=== PATIENT | female | born 1995 | race Caucasian/White ===

== ENCOUNTER 2019-11-25 16:27 | Emergency (ER) | payer BC ==
[2019-11-25] MEDS ORDERED: MAGNE/ALUM HYDROXD 30 ML UCUP ONE (17:59)
[2019-11-25] MEDS ORDERED: LIDOCAINE VISCOUS 2% SOLN 15 ML UDC ONE (18:00)
[2019-11-25] MEDS ORDERED: FAMOTIDINE 20 MG TAB ONE (18:00)
[2019-11-25 18:35] LABS: Absolute Lymphocytes (CBC) 1.6 K/uL (0.7-4.9); Basophils % 0.7 % (0-1.3); Hematocrit 43.7 % (36.0-45.0); Lymphocytes % 18.4 % (15.3-44.8); MPV 9.3 fL (7.6-11.3); RBC Red Blood Cell Count 4.53 M/uL (3.86-4.86)
[2019-11-25 19:50] LABS: ALT/SGPT 14 U/L (12-78); AST/SGOT 11 U/L (15-37); Alkaline Phosphatase 76 U/L (45-117); BUN Blood Urea Nitrogen 10 mg/dL (7-18); Bicarbonate 26 mmol/L (21-32); Bilirubin Direct 0.1 mg/dL (0-0.2); Bilirubin Total 0.4 mg/dL (0.2-1.0); Glucose Level 91 mg/dL (74-106); Lipase 125 U/L (73-393); Potassium 3.7 mmol/L (3.5-5.1); Protein, Total 7.6 g/dL (6.4-8.2); Sodium Level 140 mmol/L (136-145)
[2019-11-25 20:03] LABS: Urine Blood 2+ (NEG); Urine Glucose NEGATIVE (NEG); Urine Protein NEGATIVE (NEG); Urine Specific Gravity 1.025 (1.005-1.030)
--- NOTE | 2019-11-25 20:50 | ER ---
Nurse's Notes [facility] Name: Danielito Sadler Age: 24 yrs Sex: Female : 1995 Arrival Date: 11/25/2019 Time: 16:29 Bed 18 Private MD: Diagnosis: Gastritis and duodenitis Presentation: 11/25 16:48 Presenting complaint: Patient states: Abdominal pain x 3 days, epigastric area. Today, ca1 cramping on the lower belly. reports nausea, denies vomiting and diarrhea. Burning when urinating on Monday but went away. Denies fever. Transition of care: patient was not received from another setting of care. Onset of symptoms was November 25, 2019. Risk Assessment: Do you want to hurt yourself or someone else? Patient reports no desire to harm self or others. Initial Sepsis Screen: Does the patient meet any 2 criteria? No. Patient's initial sepsis screen is negative. Does the patient have a suspected source of infection? No. Patient's initial sepsis screen is negative. Care prior to arrival: None. 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 - Coronavirus screen:: The patient has NOT traveled to [place], [place], or [place] in the past 14 days. The patient has NOT had contact with known/suspected case of Coronavirus?. - Social history:: Patient/guardian denies using alcohol, street drugs, The patient lives with spouse, Smoking status: Patient denies any tobacco usage or history of. - Family history:: not pertinent. - Ebola Screening: : Patient negative for fever greater than or equal to 101.5 degrees Fahrenheit, and additional compatible Ebola Virus Disease symptoms Patient denies exposure to infectious person Patient denies travel to an Ebola-affected area in the 21 days before illness onset No symptoms or risks identified at this time. Screenin:47 Abuse screen: Denies threats or abuse. Nutritional screening: No deficits noted. Tuberculosis screening: No symptoms or risk factors identified. Fall Risk None identified. Assessment: 17:38 General: Appears in no apparent distress. Behavior is calm, cooperative, appropriate ah for age. Pain: Complains of pain in epigastric area and right upper quadrant Pain does not radiate. Pain currently is 5 out of 10 on a pain scale. Quality of pain is described as crampy, Pain began 2-3 days ago. Alleviated by repositioning, Aggravated by eating. Neuro: Level of Consciousness is awake, alert, Oriented to person, place, time, situation, Gait is steady, Speech is normal. Cardiovascular: Heart tones S1 S2 present. Respiratory: Airway is patent Respiratory effort is even, unlabored, Respiratory pattern is regular, symmetrical, Breath sounds are clear bilaterally. GI: Abdomen is distended, Bowel sounds present X 4 quads. Abd is soft and non tender X 4 quads. Reports nausea, Pt states that she has taken a stool softener and had a BM with no relief of symptoms. : Reports burning with urination, on Monday only, it has subsided. EENT: No signs and/or symptoms were reported regarding the EENT system. Derm: No signs and/or symptoms reported regarding the dermatologic system. 18:26 Reassessment: the IV blew when flushed but I was able to draw ordered blood prior to ah blowing. Pt tolerated well. 18:26 Reassessment: Informed Dr Olivares of IV blowing and he stated that we did not need to ah do a repeat IV at this time. 19:25 General: Appears in no apparent distress. Behavior is calm, cooperative, appropriate ea for age. Pain: Complains of pain in epigastric area. Neuro: Level of Consciousness is awake, alert, Oriented to person, place, time, situation. Cardiovascular: Patient's skin is warm and dry. Respiratory: Airway is patent Respiratory effort is even, unlabored, Respiratory pattern is regular, symmetrical. Derm: Skin is pink, warm \T\ dry. Musculoskeletal: Circulation, motion, and sensation intact. 20:21 Reassessment: Patient and/or family updated on plan of care and expected duration. Pain ea level reassessed. Patient is alert, oriented x 3, equal unlabored respirations, skin warm/dry/pink. Discharge instruction given to patient, verbalized the understanding of instruction. Pt left ED ambulatory accompanied by family. tolerating well. Vital Signs: 16:51 BP 115 / 83; Pulse 67; Resp 19 S; Temp 97.9(O); Pulse Ox 100% on R/A; Weight 70.31 kg ca1 (R); Height 5 ft. 3 in. (160.02 cm) (R); Pain 5/10; 19:29 BP 118 / 54; Pulse 78; Resp 18; Pulse Ox 100% on R/A; ea 20:00 BP 112 / 65; Pulse 78; Resp 18; Temp 98; Pulse Ox 99% on R/A; ea 16:51 Body Mass Index 27.46 (70.31 kg, 160.02 cm) ca1 ED Course: 16:29 Patient arrived in ED. mr 16:50 Triage completed. ca1 16:51 Arm band placed on right wrist. ca1 17:30 Judie Olivares MD is Attending Physician. ma2 17:31 Priya Rodrigues, RN is Primary Nurse. ah 18:26 Missed attempt(s): 22 gauge in right antecubital area. Bleeding controlled, band aid ah applied, catheter tip intact. 18:27 Patient has correct armband on for positive identification. Placed in gown. Bed in low ah position. Call light in reach. Side rails up X 1. Adult w/ patient. 20:22 No provider procedures requiring assistance completed. Patient did not have IV access ea during this emergency room visit. Administered Medications: 18:03 Drug: Pepcid 10 mg Route: PO; 18:29 Follow up: Response: No adverse reaction 18:03 Drug: GI Cocktail without - (Maalox Suspension 30 ml, Lidocaine Liquid 2 % 15 ah ml) Route: PO; 18:28 Follow up: Response: No adverse reaction; Marked relief of symptoms Outcome: 20:10 Discharge ordered by . ma2 20:22 Discharged to home ambulatory, with family. ea 20:22 Condition: stable 20:22 Discharge instructions given to patient, Instructed on discharge instructions, follow up and referral plans. medication usage, Demonstrated understanding of instructions, follow-up care, medications, Prescriptions given X 2. 20:24 Patient left the ED. ea Signatures: Michela Guallpa Elena, RN RN Judie Dubose MD MD ma2 Yesi Barnett, RN RN ca1 Priya Rodrigues, RN RN ah
--- NOTE | 2019-11-25 20:51 | EDPHYS ---
Physician Documentation [facility] Name: Danielito Sadler Age: 24 yrs Sex: Female : 1995 Arrival Date: 11/25/2019 Time: 16:29 Bed 18 Private MD: ED Physician Judie Olivares HPI: 11/25 17:58 This 24 yrs old Female presents to ER via Ambulatory with complaints of Abdominal Pain. ma2 17:58 The patient presents with abdominal pain in the epigastric area. Onset: The ma2 symptoms/episode began/occurred gradually, 3 day(s) ago. Associated signs and symptoms: Pertinent negatives: nausea and vomiting, chest pain, dysuria, fever, vomiting. Severity of pain: At its worst the pain was mild in the emergency department the pain is unchanged. The patient has experienced similar episodes in the past. TRAVEL PTA: 16:51 LMP N/A - ca1 Historical: - Allergies: 16:51 Codeine; ca1 - Home Meds: 16:51 levothyroxine 75 mcg tab 1 tab once daily [Active]; ca1 - PMHx: 16:51 Thyroid problem; ca1 - PSHx: 16:51 Tonsillectomy; ca1 - Immunization history:: Adult Immunizations up to date, Flu vaccine is not up to date. - Coronavirus screen:: The patient has NOT traveled to [place], [place], or [place] in the past 14 days. The patient has NOT had contact with known/suspected case of Coronavirus?. - Social history:: Patient/guardian denies using alcohol, street drugs, The patient lives with spouse, Smoking status: Patient denies any tobacco usage or history of. - Family history:: not pertinent. - Ebola Screening: : Patient negative for fever greater than or equal to 101.5 degrees Fahrenheit, and additional compatible Ebola Virus Disease symptoms Patient denies exposure to infectious person Patient denies travel to an Ebola-affected area in the 21 days before illness onset No symptoms or risks identified at this time. ROS: 17:58 Constitutional: Negative for fever, chills, and weight loss. ma2 17:58 All other systems are negative. Exam: 17:58 Constitutional: This is a well developed, well nourished patient who is awake, alert, ma2 and in no acute distress. Head/Face: Normocephalic, atraumatic. Eyes: Pupils equal round and reactive to light, extra-ocular motions intact. Lids and lashes normal. Conjunctiva and sclera are non-icteric and not injected. Cornea within normal limits. Periorbital areas with no swelling, redness, or edema. ENT: Nares patent. No nasal discharge, no septal abnormalities noted. Tympanic membranes are normal and external auditory canals are clear. Oropharynx with no redness, swelling, or masses, exudates, or evidence of obstruction, uvula midline. Mucous membranes moist. Neck: Trachea midline, no thyromegaly or masses palpated, and no cervical lymphadenopathy. Supple, full range of motion without nuchal rigidity, or vertebral point tenderness. No Meningismus. Chest/axilla: Normal chest wall appearance and motion. Nontender with no deformity. No lesions are appreciated. Cardiovascular: Regular rate and rhythm with a normal S1 and S2. No gallops, murmurs, or rubs. Normal PMI, no JVD. No pulse deficits. Respiratory: Lungs have equal breath sounds bilaterally, clear to auscultation and percussion. No rales, rhonchi or wheezes noted. No increased work of breathing, no retractions or nasal flaring. Abdomen/GI: Soft, non-tender, with normal bowel sounds. No distension or tympany. No guarding or rebound. No evidence of tenderness throughout. Back: No spinal tenderness. No costovertebral tenderness. Full range of motion. MS/ Extremity: Pulses equal, no cyanosis. Neurovascular intact. Full, normal range of motion. Neuro: Awake and alert, GCS 15, oriented to person, place, time, and situation. Cranial nerves II-XII grossly intact. Motor strength 5/5 in all extremities. Sensory grossly intact. Cerebellar exam normal. Normal gait. Vital Signs: 16:51 BP 115 / 83; Pulse 67; Resp 19 S; Temp 97.9(O); Pulse Ox 100% on R/A; Weight 70.31 kg ca1 (R); Height 5 ft. 3 in. (160.02 cm) (R); Pain 5/10; 19:29 BP 118 / 54; Pulse 78; Resp 18; Pulse Ox 100% on R/A; ea 20:00 BP 112 / 65; Pulse 78; Resp 18; Temp 98; Pulse Ox 99% on R/A; ea 16:51 Body Mass Index 27.46 (70.31 kg, 160.02 cm) ca1 MDM: 17:31 Patient medically screened. ma2 17:58 Differential diagnosis: gastritis, gastroesophageal reflux disease, Irritable bowel ma2 syndrome. 20:10 Data reviewed: vital signs, nurses notes. Counseling: I had a detailed discussion with [facility] the patient and/or guardian regarding: the historical points, exam findings, and any diagnostic results supporting the discharge/admit diagnosis, the presence of at least one elevated blood pressure reading (>120/80) during this emergency department visit, the need for outpatient follow up. Response to treatment: the patient's symptoms have markedly improved after treatment. 11/25 17:29 Order name: Urine Dipstick--Ancillary (enter results) 11/25 17:29 Order name: Urine --Ancillary (enter results) 11/25 17:49 Order name: Basic Metabolic Panel [facility] 11/25 17:49 Order name: CBC with Diff [facility] 11/25 17:49 Order name: Creatinine for Radiology [facility] 11/25 17:49 Order name: Hepatic Function [facility] 11/25 17:49 Order name: Lipase [facility] 11/25 19:33 Order name: Creatinine (Radiology Only); Complete Time: 20:00 [facility] 11/25 19:50 Order name: Basic Metabolic Panel; Complete Time: 20:00 [facility] 11/25 19:50 Order name: Liver (Hepatic) Function; Complete Time: 20:00 [facility] 11/25 19:50 Order name: Lipase; Complete Time: 20:00 [facility] 11/25 20:05 Order name: Urine --Ancillary [facility] 11/25 20:05 Order name: Urine Dipstick-Ancillary [facility] 11/25 17:49 Order name: Labs collected and sent; Complete Time: 18:30 [facility] 11/25 18:45 Order name: Labs - recollect needed: recollect green tube; Complete Time: 19:46 bd Administered Medications: 18:03 Drug: Pepcid 10 mg Route: PO; 18:29 Follow up: Response: No adverse reaction 18:03 Drug: GI Cocktail without - (Maalox Suspension 30 ml, Lidocaine Liquid 2 % 15 ah ml) Route: PO; 18:28 Follow up: Response: No adverse reaction; Marked relief of symptoms ah Disposition: 11/25/19 20:10 Discharged to Home. Impression: Gastritis and duodenitis. - Condition is Stable. - Discharge Instructions: Gastritis, Adult. - Prescriptions for Pepcid 20 mg Oral Tablet - take 1 tablet by ORAL route every 12 hours for 5 days; 10 tablet. Zofran 4 mg Oral Tablet - take 1 tablet by ORAL route every 12 hours As needed; 20 tablet. - Work release form, Family Work Release, Medication Reconciliation Form, Thank You Letter, Antibiotic Education, Prescription Opioid Use form. - Follow up: Private Physician; When: Tomorrow; Reason: Continuance of care. Signatures: Dispatcher [employer] EDMS Lata Mauricio Elena RN Judie Yap ea, MD MD ma2 Yesi Barnett RN RN [facility] Priya Rodrigues RN BASHIR Corrections: (The following items were deleted from the chart) 20:24 20:10 11/25/2019 20:10 Discharged to Home. Impression: Gastritis and duodenitis. ea Condition is Stable. Prescriptions for Pepcid 20 mg Oral Tablet - take 1 tablet by ORAL route every 12 hours for 5 days; 10 tablet, Zofran 4 mg Oral Tablet - take 1 tablet by ORAL route every 12 hours As needed; 20 tablet. and Forms are Medication Reconciliation Form, Thank You Letter, Antibiotic Education, Prescription Opioid Use. Follow up: Private Physician; When: Tomorrow; Reason: Continuance of care. ma2
[2019-11-27 19:56] VITALS: BP 112/65; TEMP 98; O2SAT 99
== END 2019-11-25 20:24 | disposition home or self-care (01) ==
LOC: ER 16:27
DX: K29.70 Gastritis, unspecified, without bleeding (principal); K29.80 Duodenitis without bleeding; E07.9 Disorder of thyroid, unspecified; Z88.5 Allergy status to narcotic agent
CPT/HCPCS: 36415; 80048; 80076; 81003; 81025; 83690; 85025; 99283